=== PATIENT | female | born 1965 | race African-American/Black ===

== ENCOUNTER 2016-08-06 17:37 | Emergency (ER) | payer BC ==
[2016-08-06 20:55] VITALS: BP 122/80
--- NOTE | 2016-08-06 22:32 | ED ---
Josette Rowley Matthew, scribed for Jeff Roland MD on 08/06/16 at 2220 . Abdominal Pain/Female - HPI Summary HPI Summary: A 51 y/o female presents to the ED with right sided abdominal pain since 2 days ago,which worsened last night. Associated symptoms include chills - last night, and diarrhea for the past 3 days. She denies fever, nausea, and vomiting. She's also c/o of minimal dysuria. - History of Current Complaint Chief Complaint: EDAbdPain Stated Complaint: ABD PAIN X2DAYS Time Seen by Provider: 08/06/16 22:13 Hx Obtained From: Patient ?: No Onset/Duration: Lasting Days, Still Present Timing: Constant Severity Initially: Moderate Severity Currently: Moderate Location: Diffuse - right sided Radiates: No Aggravating Factor(s): Nothing Alleviating Factor(s): Nothing Associated Signs and Symptoms: Positive: Urinary Symptoms - minimal dysuria, Diarrhea, Other: - Chills. Negative: Fever, Nausea, Vomiting Allergies/Adverse Reactions: Allergies Allergy/AdvReac Type Severity Reaction Status Date / Time No Known Allergies Allergy Verified 09/04/15 13:56 PMH/Surg Hx/FS Hx/Imm Hx Cardiovascular History: Reports: Hx Hypertension History: Reports: Hx Chronic Renal Failure Infectious Disease History: Denies: Traveled Outside the [place] in Last 30 Days - Family History Known Family History: Positive: Cardiac Disease, Hypertension, Diabetes - Social History Alcohol Use: None Substance Use Type: Reports: None Smoking Status (MU): Never Smoked Tobacco Review of Systems Positive: Chills. Negative: Fever Eyes: Negative ENT: Negative Cardiovascular: Negative Respiratory: Negative Positive: Abdominal Pain - right sided, Diarrhea. Negative: Vomiting, Nausea Positive: dysuria - minimal Musculoskeletal: Negative Skin: Negative Neurological: Negative Psychological: Normal All Other Systems Reviewed And Are Negative: Yes Physical Exam Triage Information Reviewed: Yes Vital Signs On Initial Exam: Initial Vitals Temp Pulse Resp BP 97.7 F 107 18 135/85 08/06/16 17:50 08/06/16 17:50 08/06/16 17:50 08/06/16 17:50 Vital Signs Reviewed: Yes Appearance: Positive: Well-Appearing, Pain Distress - mild discomfort Skin: Positive: Warm Head/Face: Positive: Normal Head/Face Inspection Eyes: Positive: YOLANDA ENT: Positive: Hearing grossly normal Neck: Positive: Supple Respiratory/Lung Sounds: Positive: Clear to Auscultation, Breath Sounds Present Cardiovascular: Positive: RRR Abdomen Description: Positive: Nontender, Soft, Other: - pd catheter in place Bowel Sounds: Positive: Present Musculoskeletal: Positive: Strength/ROM Intact Neurological: Positive: Sensory/Motor Intact, Normal Gait Diagnostics - Vital Signs Vital Signs Temp Pulse Resp BP Pulse Ox 08/06/16 19:40 97.9 F 104 122/80 100 08/06/16 17:50 97.7 F 107 18 135/85 - Laboratory Result Diagrams: 08/06/16 23:30 08/06/16 23:30 Lab Statement: Any lab studies that have been ordered have been reviewed, and results considered in the medical decision making process. Re-Evaluation - Re-Evaluation First Eval Change: Improved - results d/w pt Abdominal Pain Fem Course/Dx - Course Course Of Treatment: A 51 y/o female presents to the ED with right sided abdominal pain since 2 days ago, which worsened last night. Associated symptoms include chills - last night, and diarrhea for the past 3 days. She denies fever , nausea, and vomiting. She's also c/o of minimal dysuria. Labs were reviewed. In the ED course, the patient was given levofloxacin. She will be discharged home on Levaquin with PCP follow-up. - Diagnoses Provider Diagnoses: UTI (urinary tract infection), CRF (chronic renal failure) Discharge - Discharge Plan Condition: Improved Disposition: HOME Prescriptions: Levofloxacin TAB* [Levaquin TAB*] 250 mg PO EVERY OTHER DAY #3 tab Patient Education Materials: Levofloxacin (By mouth), Urinary Tract Infection in Women (ED) Referrals: [facility] [Outside] - 2 Days Non Staff,Doctor [Primary Care Provider] - Additional Instructions: Please follow-up with your primary care physician in 2 days. The documentation as recorded by the Josette garcia Matthew accurately reflects the service I personally performed and the decisions made by me, Jeff Roland MD.
[2016-08-06 23:59] LABS: Hematocrit 31 % (35-47); Hemoglobin 10.1 g/dl (12.0-16.0); Mean Corpuscular HGB Conc 33 g/dl (31-36); Mean Corpuscular Hemoglobin 29 pg (27-31); Mean Corpuscular Volume 89 fL (80-97); Mean Platelet Volume 9 um3 (7.4-10.4); Red Blood Count 3.47 10^6/ul (4.0-5.4); Red Cell Distribution Width 18 % (10.5-15); White Blood Count 6.9 10^3/ul (3.5-10.8)
[2016-08-07 00:11] LABS: Albumin 2.7 g/dL (3.2-5.2); C Reactive Protein 107.31 mg/L (< 5.00); Calcium 9.3 mg/dL (8.6-10.3); EGFR African American 4.8 (>60); EGFR Non-African American 3.8 (>60); Globulin 4.3 g/dL (2-4); Potassium 4.1 mmol/L (3.5-5.0); Total Bilirubin 0.3 mg/dL (0.2-1.0)
[2016-08-07 01:34] LABS: Urine Bacteria 1+ (Absent); Urine Bilirubin Negative (Negative); Urine Glucose Negative (Negative); Urine Nitrite Negative (Negative)
[2016-08-07] MEDS ORDERED: Levofloxacin TAB* 250 MG PO ONE (02:37)
== END 2016-08-07 02:49 | disposition home or self-care (01) ==
LOC: ED 17:37
DX: R10.9 Unspecified abdominal pain (principal); N18.9 Chronic kidney disease, unspecified; R19.7 Diarrhea, unspecified; R30.0 Dysuria; R68.83 Chills (without fever); N39.0 Urinary tract infection, site not specified
CPT/HCPCS: 36415; 80053; 81003; 81015; 82550; 83605; 83690; 84702; 85025; 85610; 86140; 87086; 99282; A9270-GY